=== PATIENT | female | born 1990 | race African-American/Black ===

== ENCOUNTER 2022-05-06 22:43 | Emergency (ER) | payer MEDICAID ==
[~2022-05-06] VITALS: Ht 165.1 cm; Wt 99.8 kg
[2022-05-06] MEDS ORDERED: LATUDA40 MG PO (23:40)
[2022-05-06] MEDS ORDERED: TOPAMAX100 MG PO (23:41)
[2022-05-06] MEDS ORDERED: QUETIAPINE FUMA50 M1 PO (23:42)
[2022-05-06] MEDS ORDERED: HALOPERIDOL1 MG PO (23:42)
== END 2022-05-07 01:03 | disposition home or self-care (01) ==
LOC: ED 22:43
DX: R45.1 Restlessness and agitation (principal); Z88.0 Allergy status to penicillin; Z79.899 Other long term (current) drug therapy
CPT/HCPCS: 99284